=== PATIENT | female | born 1965 | race Caucasian/White ===

== ENCOUNTER → 2018-06-29 | Outpatient (CLI) | payer OTHER ==
[2018-06-29 11:43] LABS: POTASSIUM 4.1 mmol/L (3.6-5.0)
== END ==
LOC: RAD 10:01
PROVIDERS: Family Medicine
DX: K52.9 Noninfective gastroenteritis and colitis, unspecified (principal); R10.9 Unspecified abdominal pain; R50.9 Fever, unspecified; N64.4 Mastodynia
CPT/HCPCS: Q9967

== ENCOUNTER → 2019-05-13 | Outpatient (CLI) | payer OTHER | LOC: RAD 16:04 | DX: R10.11 Right upper quadrant pain (principal); R19.5 Other fecal abnormalities ==

== ENCOUNTER → 2020-03-12 | Outpatient (CLI) | payer BC ==
[2020-03-12 07:34] LABS: ALBUMIN 4.3 g/dL (3.5-5.0)
[2020-03-12 07:37] LABS: TOTAL PROTEIN 7.5 g/dL (6.4-8.3)
[2020-03-12 07:38] LABS: TOTAL BILIRUBIN 0.4 mg/dL (0.2-1.2)
[2020-03-12 07:42] LABS: DIRECT BILIRUBIN 0.2 mg/dL (0.0-0.5)
== END ==
LOC: LAB 07:09
PROVIDERS: Family Medicine
DX: E78.5 Hyperlipidemia, unspecified (principal)

== ENCOUNTER → 2020-12-27 | Outpatient (CLI) | payer BC ==
[2020-12-27 08:37] LABS: ALBUMIN 4.4 g/dL (3.5-5.0); POTASSIUM 4.5 mmol/L (3.5-5.1)
[2020-12-27 08:38] LABS: CALCIUM 9.5 mg/dL (8.3-10.5)
[2020-12-27 08:40] LABS: TOTAL PROTEIN 8.2 g/dL (6.4-8.3)
[2020-12-27 08:42] LABS: TOTAL BILIRUBIN 0.6 mg/dL (0.2-1.2)
== END ==
LOC: LAB 07:05
PROVIDERS: Family Medicine
DX: E78.5 Hyperlipidemia, unspecified (principal); E03.9 Hypothyroidism, unspecified

== ENCOUNTER → 2021-11-22 | Outpatient (CLI) | payer BC | LOC: RAD 09:16 | DX: R06.00 Dyspnea, unspecified (principal) ==

== ENCOUNTER → 2022-01-06 | Outpatient (CLI) | payer BC | LOC: LAB 07:04 | DX: Z01.89 Encounter for other specified special examinations (principal) ==

== ENCOUNTER → 2022-01-06 | Outpatient (CLI) | payer BC ==
[2022-01-06 07:44] LABS: POTASSIUM 4.7 mmol/L (3.5-5.1)
[2022-01-06 07:45] LABS: ALBUMIN 4.3 g/dL (3.5-5.0)
[2022-01-06 07:46] LABS: CALCIUM 9.7 mg/dL (8.3-10.5)
[2022-01-06 07:47] LABS: TOTAL PROTEIN 7.3 g/dL (6.4-8.3)
[2022-01-06 07:49] LABS: TOTAL BILIRUBIN 0.7 mg/dL (0.2-1.2)
== END ==
LOC: LAB 07:07
PROVIDERS: Family Medicine
DX: Z13.1 Encounter for screening for diabetes mellitus (principal); K57.30 Diverticulosis of large intestine without perforation or abscess without bleeding; E78.5 Hyperlipidemia, unspecified; E03.9 Hypothyroidism, unspecified; R06.09 Other forms of dyspnea; R09.82 Postnasal drip

== ENCOUNTER → 2022-01-30 | Outpatient (CLI) | payer BC | LOC: LAB 07:07 | DX: R06.02 Shortness of breath (principal) ==

== ENCOUNTER → 2022-02-10 | Outpatient (CLI) | payer BC | LOC: LAB 07:18 | DX: K57.30 Diverticulosis of large intestine without perforation or abscess without bleeding (principal); Z13.1 Encounter for screening for diabetes mellitus; Z15.89 Genetic susceptibility to other disease; R09.82 Postnasal drip; E78.5 Hyperlipidemia, unspecified; E03.9 Hypothyroidism, unspecified; R06.09 Other forms of dyspnea ==

== ENCOUNTER → 2023-03-06 | Outpatient (CLI) | payer OTHER | LOC: LAB 10:16 | DX: Z00.00 Encounter for general adult medical examination without abnormal findings (principal); E88.01 Alpha-1-antitrypsin deficiency; E78.5 Hyperlipidemia, unspecified; R73.9 Hyperglycemia, unspecified ==

== ENCOUNTER → 2024-07-27 | Outpatient (CLI) | payer BC | LOC: LAB 07:17 | DX: E78.5 Hyperlipidemia, unspecified (principal); E03.4 Atrophy of thyroid (acquired) ==